=== PATIENT | female | born 1930 | race Caucasian/White ===

== ENCOUNTER 2018-02-18 09:04 | Observation (INO) | payer OTHER ==
[2018-02-18 09:56] LABS: ADD MAN DIFF? NO
[2018-02-18 09:59] LABS: BASOPHILS % 0.3 % (0.0-2.0); EOSINOPHILS % 0.1 % (0.0-7.0); HEMATOCRIT 41.3 % (37.0-47.0); HEMOGLOBIN 13.3 g/dl (12.0-16.0); LYMPHOCYTES % 6.8 % (15.0-51.0); MEAN CORPUSCULAR HEMOGLOBIN 27.8 pg (29.0-33.0); MEAN CORPUSCULAR HGB CONC 32.2 g/dl (32.0-37.0); MEAN CORPUSCULAR VOLUME 86.2 fl (82.0-101.0); MEAN PLATELET VOLUME 10.6 fl (7.4-10.4); MONOCYTE # 0.7 10^3/ul (0.3-0.9); MONOCYTES % 4.7 % (0.0-11.0); NEUTROPHIL # 13.4 10^3/ul (1.6-7.5); NEUTROPHILS % 87.6 % (39.0-77.0); PLATELET COUNT 211 10^3/UL (140-415); RED BLOOD COUNT 4.79 10^6/ul (4.20-5.40); RED CELL DISTRIBUTION WIDTH 14.9 % (11.5-14.5)
[2018-02-18 09:59] LABS: WHITE BLOOD COUNT 15.3 10^3/ul (4.8-10.8)
[2018-02-18] MEDS: CEFEPIME 2GM/50 ML (PMX) 50 ML IVPB (10:03)
[2018-02-18] MEDS: ACETAMINOPHEN 325 MG TAB PO (10:03)
[2018-02-18] MEDS: SODIUM CHLORIDE 0.9% 1L BAG IV* (10:03)
[2018-02-18 10:16] LABS: ALANINE AMINOTRANSFERASE 14 IU/L (13-69); ALBUMIN 4.5 g/dl (3.3-4.9); ALBUMIN/GLOBULIN RATIO 1.18; ALKALINE PHOSPHATASE 85 IU/L (42-121); ANION GAP 13 (8-16); ASPARTATE AMINO TRANSFERASE 20 IU/L (15-46); BILIRUBIN,INDIRECT 1.1 mg/dl (0-1.1); BILIRUBIN,TOTAL 1.1 mg/dl (0.2-1.3); BLOOD UREA NITROGEN 24 mg/dl (7-20); CALCIUM 9.9 mg/dl (8.4-10.2); CARBON DIOXIDE 30 mmol/L (21-31); CHLORIDE 101 mmol/L (97-110); CREATININE 1.11 mg/dl (0.44-1.00); GLUCOSE 145 mg/dl (70-220); POTASSIUM 3.8 mmol/L (3.5-5.1); SODIUM 140 mmol/L (135-144); TOTAL PROTEIN 8.3 g/dl (6.1-8.1)
[2018-02-18 10:17] LABS: LACTIC ACID 1.3 mmol/L (0.5-2.0)
[2018-02-18 10:18] LABS: INR 1.04; PROTIME 13.7 Sec (11.9-14.9); PT RATIO 1.1
[2018-02-18 10:19] LABS: PARTIAL THROMBOPLASTIN TIME 34.9 Sec (25.0-35.0)
[2018-02-18 10:28] LABS: B-TYPE NATRIURETIC PEPTIDE 5450 PG/ML (0-450); TROPONIN-I 0.044 ng/ml (0.000-0.120)
[2018-02-18] MEDS: VANCOMYCIN 1 GM (PMX) 250 ML IVPB (11:02)
[2018-02-18] MEDS ORDERED: ONDANSETRON 4 MG INJ IV (12:00)
[2018-02-18] MEDS ORDERED: ACETAMINOPHEN 325 MG TAB PO (12:00)
[2018-02-18] MEDS ORDERED: VANCOMYCIN IV PER PHARMACY XX (13:00)
[2018-02-18] MEDS ORDERED: GLUCOSE GEL 15 GRAM TUBE PO ×2 (13:30)
[2018-02-18] MEDS ORDERED: GLUCOSE GEL 15 GRAM TUBE BUCCAL (13:30)
[2018-02-18] MEDS ORDERED: GLUCAGON 1 MG INJ IM (13:30)
[2018-02-18] MEDS ORDERED: NACL 0.9% 3 ML SYG IV (13:30)
[2018-02-18] MEDS ORDERED: DEXTROSE 50% 50 ML SYRINGE IV ×2 (13:30)
[2018-02-18] MEDS: HYDROCODONE/APAP (5/325) TAB PO (14:09)
[2018-02-18 15:10] LABS: LACTIC ACID 0.9 mmol/L (0.5-2.0)
[2018-02-18 17:01] LABS: LACTIC ACID 1.4 mmol/L (0.5-2.0)
[2018-02-18] MEDS: INSULIN ASPART [NOVOLOG] 3 ML PEN SC ×2 (17:18→21:00)
[2018-02-18] MEDS: PIPER-TAZO 3.375 GM IV (PMX) 100 ML IVPB (17:20)
[2018-02-18] MEDS: FUROSEMIDE 40 MG TAB PO (17:21)
[2018-02-18] MEDS: METOPROLOL (XL) 25 MG TAB PO (21:12)
[2018-02-18] MEDS: INSULIN GLARGINE [LANTus] (100 UNITS/ML) SYG SC (21:28)
[2018-02-19] MEDS: PIPER-TAZO 3.375 GM IV (PMX) 100 ML IVPB ×3 (00:13→11:45)
[2018-02-19] MEDS: FUROSEMIDE 40 MG TAB PO (05:38)
[2018-02-19 05:46] LABS: ADD MAN DIFF? NO
[2018-02-19 05:49] LABS: WHITE BLOOD COUNT 8.7 10^3/ul (4.8-10.8)
[2018-02-19 05:49] LABS: BASOPHILS % 0.3 % (0.0-2.0); EOSINOPHILS % 0.2 % (0.0-7.0); HEMATOCRIT 36.5 % (37.0-47.0); HEMOGLOBIN 11.5 g/dl (12.0-16.0); LYMPHOCYTES # 1.4 10^3/ul (0.8-2.9); LYMPHOCYTES % 16.5 % (15.0-51.0); MEAN CORPUSCULAR HEMOGLOBIN 27.8 pg (29.0-33.0); MEAN CORPUSCULAR HGB CONC 31.5 g/dl (32.0-37.0); MEAN CORPUSCULAR VOLUME 88.4 fl (82.0-101.0); MEAN PLATELET VOLUME 10.6 fl (7.4-10.4); MONOCYTE # 0.7 10^3/ul (0.3-0.9); MONOCYTES % 7.5 % (0.0-11.0); NEUTROPHIL # 6.5 10^3/ul (1.6-7.5); NEUTROPHILS % 74.9 % (39.0-77.0); PLATELET COUNT 169 10^3/UL (140-415); RED BLOOD COUNT 4.13 10^6/ul (4.20-5.40); RED CELL DISTRIBUTION WIDTH 15.1 % (11.5-14.5)
[2018-02-19] MEDS ORDERED: ACETAMINOPHEN 325 MG TAB PO (06:00)
[2018-02-19 06:27] LABS: HEMOGLOBIN A1C 6.2 % (0-5.9)
[2018-02-19 06:46] LABS: ALANINE AMINOTRANSFERASE 13 IU/L (13-69); ALBUMIN 3.6 g/dl (3.3-4.9); ALKALINE PHOSPHATASE 60 IU/L (42-121); ANION GAP 12 (8-16); ASPARTATE AMINO TRANSFERASE 20 IU/L (15-46); BILIRUBIN,INDIRECT 0.8 mg/dl (0-1.1); BILIRUBIN,TOTAL 0.8 mg/dl (0.2-1.3); BLOOD UREA NITROGEN 28 mg/dl (7-20); CALCIUM 8.7 mg/dl (8.4-10.2); CARBON DIOXIDE 31 mmol/L (21-31); CHLORIDE 100 mmol/L (97-110); CREATININE 1.24 mg/dl (0.44-1.00); GLUCOSE 109 mg/dl (70-220); POTASSIUM 3.8 mmol/L (3.5-5.1); SODIUM 139 mmol/L (135-144); TOTAL PROTEIN 6.6 g/dl (6.1-8.1)
[2018-02-19] MEDS: VANCOMYCIN 750 MG in SOD CHLORIDE 0.9% 150 ML IVPB (06:58)
[2018-02-19] MEDS: INSULIN ASPART [NOVOLOG] 3 ML PEN SC ×2 (07:55→11:36)
[2018-02-19] MEDS: METOPROLOL (XL) 25 MG TAB PO (08:25)
[2018-02-19] MEDS: ASPIRIN 81 MG TAB PO (08:25)
[2018-02-19] MEDS: ENOXAPARIN 30 MG/0.3 ML SYG SC (09:05)
== END 2018-02-19 13:28 | disposition home or self-care (01) ==
LOC: E/R 09:04 → TEL 11:57
DX: A41.9 Sepsis, unspecified organism (principal); J18.9 Pneumonia, unspecified organism; J40 Bronchitis, not specified as acute or chronic; E11.9 Type 2 diabetes mellitus without complications; I10 Essential (primary) hypertension; I50.30 Unspecified diastolic (congestive) heart failure
CPT/HCPCS: 36415; 71045; 80053; 82962; 83036; 83605; 83880; 84484; 85025; 85610; 85730; 87040; 93005; 93306; 96374; 96375; 99291-25; G0378